=== PATIENT | female | born 1990 | race American Indian/Alaskan Native ===

== ENCOUNTER 2021-12-31 03:53 | Emergency (ER) | payer OTHER ==
[2021-12-31] MEDS ORDERED: ASPIRIN 325 MG TAB PO ONE (04:09)
--- NOTE | 2021-12-31 04:48 | XRay Report ---
CHEST 2 VIEWS INDICATION / CLINICAL INFORMATION: CHEST PAIN. COMPARISON: None available. FINDINGS: SUPPORT DEVICES: None. HEART / MEDIASTINUM: Heart size and mediastinal contour appear within normal limits. LUNGS / PLEURA: No significant pulmonary or pleural abnormality. No pneumothorax. BONES: Mild dextroscoliosis apex centered at T8. ADDITIONAL FINDINGS: No significant additional findings. IMPRESSION: 1. No active cardiopulmonary disease. Signer Name: Shoaib Kim II, MD Signed: 12/31/2021 4:43 AM Workstation Name: [id number]
[2021-12-31 05:23] LABS: Basophils % (Auto) 0.3 % (0.0-1.8); Hematocrit 28.9 % (30.3-42.9); Hemoglobin 9.2 gm/dl (10.1-14.3); Lymphocytes # (Auto) 2.3 K/mm3 (1.2-5.4); Lymphocytes % (Auto) 44.2 % (13.4-35.0); Mean Corpuscular HGB Conc 32 % (30-34); Mean Corpuscular Volume 81 fl (79-97); Monocytes # (Auto) 0.5 K/mm3 (0.0-0.8); Monocytes % (Auto) 9.3 % (0.0-7.3); Platelet Count 313 K/mm3 (140-440); Red Blood Count 3.57 M/mm3 (3.65-5.03)
[2021-12-31 05:35] VITALS: BP 135/71
[2021-12-31 05:39] LABS: Alanine Aminotransferase 18 units/L (7-56); Albumin 4.2 g/dL (3.9-5); BUN/Creatinine Ratio 9; Blood Urea Nitrogen 7 mg/dL (7-17); Calcium 9.2 mg/dL (8.4-10.2); Hemolysis Index 5
--- NOTE | 2021-12-31 11:33 | Electrocardiograph Report ---
[facility] Test Date: 2021-12-31 Test Time: 04:00:47 Pat Name: DOUGIE SAMANO Department: Room: Gender: F [employer] Driver: LEELA : 1990 Requested By: ED DOC Order Number: [id number] Reading MD: Jason Arce Measurements Intervals [place] Rate: 62 P: 60 DE: 124 QRS: 60 QRSD: 73 T: 58 QT: 401 QTc: 407 Interpretive Statements Sinus arrhythmia No previous ECG available for comparison Electronically Signed On 12-31-2021 11:32:39 EDT by Jason Arce
== END 2022-01-01 07:31 | disposition left against medical advice (07) ==
LOC: ED 03:53
DX: R07.9 Chest pain, unspecified (principal); Z53.21 Procedure and treatment not carried out due to patient leaving prior to being seen by health care provider
CPT/HCPCS: 36415; 71046; 80053; 84484; 85025; 93005